=== PATIENT | male | born 1995 | race Caucasian/White ===

== ENCOUNTER 2017-05-01 14:02 | Emergency (ER) | END 2017-05-01 14:20 | disposition home or self-care (01) ==

== ENCOUNTER 2018-07-09 00:09 | Emergency (ER) | payer SELFPAY ==
[~2018-07-09] VITALS: Ht 165.1 cm; Wt 71.7 kg
[~2018-07-09 00:09] MED LIST: ACET-2047 PO; ALBU18HF INHALATION; ALBU8.5H8 INH; NAPR-688 PO; PROM6.25 PO
[2018-07-09 00:29] VITALS: BP 135/87; PULSE 95; RESP 20; Ht 165.1 cm; Wt 71.7 kg
[2018-07-09] MEDS ORDERED: IBUP-1542 PO (11:14)
[2018-07-09] MEDS ORDERED: HYDR-4011 PO (11:14)
== END 2018-07-09 00:40 | disposition left against medical advice (07) ==
LOC: FTE 00:09
DX: Z53.21 Procedure and treatment not carried out due to patient leaving prior to being seen by health care provider (principal)

== ENCOUNTER 2018-07-09 09:38 | Emergency (ER) | payer OTHER ==
[~2018-07-09] VITALS: Ht 165.1 cm; Wt 72.4 kg
[2018-07-09 09:42] VITALS: BP 114/70; PULSE 97; RESP 20; Ht 165.1 cm; Wt 72.4 kg
[2018-07-09] MEDS ORDERED: IBUPROFEN 600 MG TAB PO ONE (10:00)
[2018-07-09] MEDS ORDERED: HYDROCODONE/APAP (5/325) TAB PO ONE (10:00)
[2018-07-09] MEDS ORDERED: IBUP-1542 PO (11:14)
[2018-07-09] MEDS ORDERED: HYDR-4011 PO (11:14)
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
== END 2018-07-09 11:33 | disposition home or self-care (01) ==
LOC: FTE 09:38
DX: S39.012A Strain of muscle, fascia and tendon of lower back, initial encounter (principal); S89.92XA Unspecified injury of left lower leg, initial encounter; V49.40XA Driver injured in collision with unspecified motor vehicles in traffic accident, initial encounter
CPT/HCPCS: 29505; 72040; 72100; 73510; 73564; Z7502; Z7610